=== PATIENT | male | born 1935 | race Caucasian/White ===

== ENCOUNTER → 2018-06-30 07:23 | Outpatient (CLI) | payer MEDICARE, BC, SELFPAY ==
--- NOTE | 2018-06-30 | DI.NM.S_ITS ---
PROCEDURE: NM BONE SCAN WHOLE BODY RADIOPHARMACEUTICAL: 20.3 mCi Tc-99m MDP IV. INDICATIONS: PRESENCE OF LEFT ARTIFICAL HIP TECHNIQUE: Delayed whole-body scintigrams were obtained approximately 3-4 hours after intravenous injection of radiotracer. Anterior and posterior views were acquired from vertex to feet. Additional left and right oblique views of the pelvis, hips and knees were obtained. COMPARISON: [facility] [place], CR, XR PELVIS W LATERAL HIP LT, 12/06/2015, 8:39. [facility] [place], CR, XR PELVIS WITH LATERAL HIP LEFT, 11/10/2017, 10:47. [facility] [place], CR, XR PELVIS WITH LATERAL HIP LEFT, 06/29/2018, 8:27. CR, HIP COMP MIN 2VW (LT), 12/19/2013, 13:42. FINDINGS: There is photopenia in the left, consistent with left hip arthroplasty. There is low level increased activity around the left hip prosthesis, compatible with postsurgical changes. No lesions are identified in skull, sternum, clavicles, scapulae, ribs, bony pelvis, and visualized shafts of the long bones. There is low level increased uptake in cervical, thoracic and lumbar spine with distribution indistinguishable from degenerative disc and facet disease. There are foci of increased periarticular activity involving shoulders, sternoclavicular joints, elbows, wrists and hands, SI joints, knees and feet, compatible with degenerative/arthritic changes. IMPRESSION: 1. Left hip arthroplasty. Low level increased uptake around left hip prosthesis is nonspecific and most likely secondary to postsurgical change. 2. Degenerative/arthritic changes as noted. Dictated by: Jaguar Santana M.D. on 06/30/2018 at 13:38 Approved by: Jaguar Santana M.D. on 06/30/2018 at 17:17
== END ==
PROVIDERS: Family Provider Family Medicine; PCP Family Medicine; Visit Provider Orthopaedic Surgery
DX: M25.552 Pain in left hip (principal); Z96.642 Presence of left artificial hip joint
CPT/HCPCS: 78306; A9503